=== PATIENT | female | born 2000 | race Caucasian/White ===

== ENCOUNTER 2020-09-27 11:21 | Emergency (ER) | payer SELFPAY ==
[2020-09-27 11:30] VITALS: BP 144/91; PULSE 89; RESP 20; TEMP 37; O2SAT 99
--- NOTE | 2020-09-27 11:42 | ED.URI ---
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 She reports sore throat, body aches, cough, congestion. She reports negative Covid test today. She reports continuing to have multiple symptoms. She reports a history of strep throat. She reports she is Covid tested frequently because of her occupation. MD elicited complaint: cough and sore throat Related Data Home Medications Medication Instructions Recorded Confirmed Control Pill 09/27/20 Allergies Allergy/AdvReac Type Severity Reaction Status Date / Time No Known Allergies Allergy Verified 09/27/20 11:46 Review of Systems Review of Systems: Narrative: CONSTITUTIONAL: Denies fever, chills, or sweats. EYES: Denies visual changes, redness, or discharge. ENT: Denies rhinorrhea, congestion, reports sore throat and mild otalgia. CARDIOVASCULAR: Denies pleuritic chest pain from coughing, denies palpitations, or edema. RESPIRATORY: Reports cough, denies dyspnea. GASTROINTESTINAL: Denies abdominal pain, nausea, vomiting, or diarrhea. GENITOURINARY: Denies dysuria or hematuria. SKIN: Denies rash or itching. MUSCULOSKELETAL: Denies back pain, joint pain, or myalgia. NEUROLOGIC: Reports headache, denies numbness, dizziness, or weakness. PSYCHIATRIC: Denies anxiety or depression. [facility] Past Medical History Medical History (Updated 09/27/20 @ 12:00 by GROVER Deng) No significant past medical history Surgical History Surgical History (Updated 09/27/20 @ 11:47 by GROVER Deng) No significant past surgical history Social History Social History (Updated 09/27/20 @ 11:57 by GROVER Deng) Smoking status: Never smoker Alcohol intake: never Substance use: never Living arrangements: with family Occupation/Education: occupation Exam Narrative: Exam Narrative: GENERAL: Well-appearing, well-nourished, and in no acute distress. HEAD: Normocephalic, atraumatic. EYES: No redness or drainage. Conjunctiva are normal. ENT: Mucous membranes pink and moist. TMs normal bilaterally. Throat normal erythema, edema and exudate. Uvula midline. NECK: AROM. Supple. No lymphadenopathy. CHEST: No respiratory distress. HEART: Regular rate and rhythm. EXTREMITIES: Normal range of motion. No edema. SKIN: Warm, dry, no rash. NEURO: No focal deficits. Alert and oriented x3. Gait steady. PSYCH: Normal affect. No signs of depression or anxiety. MDM - URI/Sore Throat MDM Narrative Medical decision making narrative: Patient has positive strep. Patient be treated with penicillin at this time. 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 Patient is stable for discharge home with outpatient follow-up as needed. Differential Diagnosis Differential diagnosis: Likely upper respiratory infection, viral infection, influenza and pharyngitis Lab Data Attestation: I reviewed the patient's lab results. Critical Care Time Critical Care Time Critical Care Time: No Discharge Plan Discharge Clinical Impression: Strep throat Patient Disposition: Home, Self-Care Condition: Stable Instructions: Antibiotic Form Additional Instructions: Take antibiotics as directed. Follow-up with your PCP as needed. Prescriptions: New penicillin V potassium 500 mg tablet 500 mg PO Q12H 10 Days Qty: 20 RF: 0 No Action Control Pill RF: 0 Follow-up/Referrals: PHYSICIAN,SEWING MACHINES SALESPERSON [Primary Care Provider] - Time of Disposition: 12:01
[2020-09-27 11:52] VITALS: BP 144/91; PULSE 89; RESP 20; TEMP 37; O2SAT 99
== END 2020-09-27 12:05 | disposition home or self-care (01) ==
PROVIDERS: Emergency Provider Nurse Practitioner
DX: J02.0 Streptococcal pharyngitis (principal)
CPT/HCPCS: 87804; 87880; 99213; G0463

== ENCOUNTER 2021-03-25 18:39 | Emergency (ER) | payer SELFPAY ==
[2021-03-25 18:50] VITALS: BP 138/81; PULSE 94; RESP 16; TEMP 36.6; O2SAT 100
--- NOTE | 2021-03-25 19:34 | ED.HA ---
HPI - Headache General Chief Complaint: Headache Stated Complaint: nausea headache Time Seen by Provider: 03/25/21 19:34 Source: patient and RN notes reviewed Mode of arrival: ambulatory Limitations: no limitations History of Present Illness HPI Narrative: 20-year-old female who is 6 weeks presents with concern for vomiting and headache. Reports vomiting once every hour started yesterday morning. Reports temporal intermittent headache. She denies any intervention for headache. 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 She denies any ankle swelling. Reports she is urinating at least once every 6 hours, has moist mouth and eyes. She denies thunderclap headache. Reports she has appointment at her [facility] tomorrow. MD elicited complaint: headache Related Data Home Medications Medication Instructions Recorded Confirmed PNV cmb#95-ferrous fumarate-FA 1 tablet PO DAILY 03/25/21 03/25/21 [] Allergies Allergy/AdvReac Type Severity Reaction Status Date / Time No Known Allergies Allergy Verified 09/27/20 11:46 Review of Systems Review of Systems: Narrative: CONSTITUTIONAL: Denies malaise, chills, sweats, or fever. EYES: Denies visual changes, redness, or discharge. ENT: Denies rhinorrhea, congestion, sinus pain, otalgia or sore throat. CARDIOVASCULAR: Denies chest pain, palpitations, or edema. RESPIRATORY: Denies cough or dyspnea. GASTROINTESTINAL: Denies abdominal pain, diarrhea. Reports nausea and vomiting GENITOURINARY: Denies dysuria or hematuria. Denies vaginal bleeding MUSCULOSKELETAL: Denies myalgia. NEUROLOGIC: Reports headache. All systems reviewed & are unremarkable except as noted in HPI and below PMFSH Past Medical History Medical History (Updated 03/25/21 @ 19:44 by Gilma Alvarez NP) No significant past medical history Surgical History Surgical History (Updated 09/27/20 @ 11:47 by GROVER Deng) No significant past surgical history Social History Social History (Updated 09/27/20 @ 11:57 by GROVER Deng) Smoking status: Never smoker Alcohol intake: never Substance use: never Gender identity (if verbalized by the patient): Female Comments At time of signature, agree with nursing past medical, surgical, social and family history. There is no relevant family history pertinent to the presenting complaint Exam Narrative: Exam Narrative: GENERAL: Well-appearing, well-nourished, and in no acute distress. HEAD: Normocephalic, atraumatic. EYES: PERRLA, conjunctivae clear ENT: Nares clear. Mucous membranes moist. NECK: Supple. CHEST: No respiratory distress. Speaks in full sentences. HEART: Regular rate and rhythm. ABDOMEN: Soft, nontender, nondistended, normal active bowel sounds, no palpable masses. EXTREMITIES: No edema. NEURO: Alert and oriented x3. No focal deficits. PSYCH: Normal mood and affect Course Course Emergency Course: Discussed with patient limited diagnostic capability at the [facility], discussed transfer to emergency department, patient denies transfer at this time. Advised patient on the importance of following up with her [facility] for reevaluation of her symptoms. Patient is aware of diagnosis, understands and agrees to treatment plan. Anticipatory guidance given. Patient agrees to follow-up as directed and is aware of reasons to seek care at the emergency department. Portions of this record may have been created with voice recognition software Vital Signs Vital signs: Vital Signs Temperature 97.9 F 03/25/21 18:50 Pulse Rate 94 03/25/21 18:50 Respiratory Rate 16 03/25/21 18:50 Blood Pressure 138/81 03/25/21 18:50 Pulse Oximetry 100 03/25/21 18:50 Temperature 97.9 F 03/25/21 18:50 Pulse Rate 94 03/25/21 18:50 Respiratory Rate 16 03/25/21 18:50 Blood Pressure 138/81 03/25/21 18:50 Pulse Oximetry 100 03/25/21 18:50 Reviewed. MDM - Head
== END 2021-03-25 19:51 | disposition home or self-care (01) ==
PROVIDERS: Emergency Provider Nurse Practitioner
DX: O21.9 Vomiting of pregnancy, unspecified (principal); Z3A.01 Less than 8 weeks gestation of pregnancy
CPT/HCPCS: 99213; G0463

== ENCOUNTER 2021-04-28 12:37 | Emergency (ER) | payer OTHER, SELFPAY ==
--- NOTE | ~2021-04-28 | XR_ITS ---
EXAMINATION: XR foot RT min 3V EXAM DATE: 04/28/2021 12:59 INDICATION: Fell down stairs. Initial encounter following injury, with pain of the right foot. TECHNIQUE: Right foot dorsoplantar, lateral and oblique projections obtained and reviewed. There is no prior study for comparison. FINDINGS: Right metatarsal bones unremarkable. There are no acute fractures or dislocations identifi ed. There is no subcutaneous gas. The soft tissue is unremarkable. There are no radiopaque foreig n bodies. IMPRESSION: No acute osseous findings. Reviewed, dictated and finalized at location A. IMPRESSION: No acute osseous findings.
--- NOTE | 2021-04-28 12:40 | ED.LOWEXIN ---
HPI - Extremity Injury (Lower) General Chief Complaint: Extremity Injury, Lower Stated Complaint: /Injury to right Foot from fall Time Seen by Provider: 04/28/21 12:40 Source: patient and RN notes reviewed History of Present Illness HPI Narrative: Patient is a 20-year-old female who presents the urgent care with complaints of right foot pain due to fall/injury this morning. Patient states that she is elevated and used ice but denies any use of ilvg-nac-tjgvgzg medication. Patient states she is 11 weeks . Denies of hitting her abdomen, her head, or any loss of consciousness. Patient states that they were wood laminate stairs and she was wearing socks at the time of the fall. States that she fell directly onto the right foot and her butt. No other acute complaints. No acute distress noted. Patient aware of the plan of care. Some parts of this dictation were generated by voice recognition software and may contain typographical and/or grammatical inaccuracies. Related Data Home Medications Medication Instructions Recorded [facility]irmed [facility] 1 tablet PO DAILY 03/25/21 03/25/21 [] Allergies Allergy/AdvReac Type Severity Reaction Status Date / Time No Known Allergies Allergy Verified 04/28/21 12:53 Review of Systems Review of Systems: Narrative: CONSTITUTIONAL: Denies fever, chills, or sweats. EYES: Denies visual changes, redness, or discharge. ENT: Denies rhinorrhea, congestion, sore throat, or otalgia. CARDIOVASCULAR: Denies chest pain, palpitations, or edema. RESPIRATORY: Denies cough or dyspnea. GASTROINTESTINAL: Denies abdominal pain, nausea, vomiting, or diarrhea. GENITOURINARY: Denies dysuria or hematuria. SKIN: Denies rash or itching. MUSCULOSKELETAL: Reports of right foot pain NEUROLOGIC: Denies headache, numbness, or weakness. All other systems reviewed are negative, except as documented in HPI. [facility] Past Medical History Medical History (Updated 04/28/21 @ 13:13 by GROVER Solis) No significant past medical history Surgical History Surgical History (Updated 09/27/20 @ 11:47 by GROVER Deng) No significant past surgical history Social History Social History (Updated 09/27/20 @ 11:57 by GROVER Deng) Smoking status: Never smoker Alcohol intake: never Substance use: never Gender identity (if verbalized by the patient): Female Comments At the time of my signature, I reviewed and agree with the nursing past medical, surgical, social, and family history. There is no relevant family history pertinent to the patient complaint. Exam Narrative: Exam Narrative: GENERAL: This is a well-nourished, well-developed patient, in no apparent distress. HEAD: normocephalic, atraumatic. EYES: PERRL. Sclera clear/white. Vision is grossly intact. EARS: External ears normal NOSE: External nose normal with no obvious nasal discharge, nares without redness, no rhinorrhea. THROAT: Mucous membranes moist NECK: Neck supple CARDIOVASCULAR: Regular rate and rhythm without murmurs, gallops, or rubs. RESPIRATORY: Clear to auscultation. Breath sounds equal bilaterally. No wheezes, rales, or rhonchi. SKIN: warm, intact with no suspicious lesions or rash, good texture and turgor. NEURO: awake, alert, and oriented to person, place and time. There were no obvious focal neurologic abnormalities. EXTREMITIES: Very mild area of ecchymosis and erythema noted to the dorsal lateral aspect of the right foot without obvious deformity. Range of motion within normal limits with exacerbated pains. Positive strong right pedal pulse with capillary refill less than 2 seconds Course Vital Signs Vital signs: Vital Signs Temperature 98.5 F 04/28/21 12:47 Pulse Rate 101 H 04/28/21 12:47 Respiratory Rate 14 04/28/21 12:47 Blood Pressure 136/70 04/28/21 12:47 Pulse Oximetry 99 04/28/21 12:47 Temperature 98.5 F 04/28/21 12:54 Puls
[2021-04-28 12:47] VITALS: BP 136/70; PULSE 101; RESP 14; TEMP 36.9; O2SAT 99
[2021-04-28 12:54] VITALS: BP 136/70; PULSE 101; RESP 14; TEMP 36.9; O2SAT 99
--- NOTE | 2021-04-28 13:09 | PC.NURSE ---
PT STATED SHE WAS 11 WEEKS AND WAS TOLD OF RISKS OF RADIATION AND AGREED FOR IMAGING. PT WAS DOUBLE SHIELDED.
== END 2021-04-28 13:17 | disposition home or self-care (01) ==
PROVIDERS: Emergency Provider Nurse Practitioner Family
DX: O9A.211 Injury, poisoning and certain other consequences of external causes complicating pregnancy, first trimester (principal); S99.921A Unspecified injury of right foot, initial encounter; W10.9XXA Fall (on) (from) unspecified stairs and steps, initial encounter; Z3A.11 11 weeks gestation of pregnancy
CPT/HCPCS: 73630; 99213; G0463

== ENCOUNTER 2021-12-28 11:22 | Emergency (ER) | payer OTHER, SELFPAY ==
[2021-12-28 11:28] VITALS: BP 147/90; PULSE 85; RESP 20; TEMP 37.1; O2SAT 98
--- NOTE | 2021-12-28 14:43 | ED.GENADULT ---
HPI - General Adult General Chief complaint: Shortness of Breath/Dyspnea Stated complaint: Shortness of Breath Time Seen by Provider: 12/28/21 12:01 Source: patient and RN notes reviewed Mode of arrival: ambulatory Limitations: no limitations History of Present Illness HPI narrative: Patient presents today complaining of intermittent shortness of breath, cough, rhinorrhea since 1800 last night. Denies fever, congestion, sore throat. States she was exposed to COVID-19 3 days ago at work. Patient works at a [employer]. She has tried no medication for symptoms prior to arrival. Denies any history of asthma or COPD. She is a non-smoker. She did take a home COVID-19 test today it was negative. MD complaint: Shortness of breath, cough Related Data Home Medications Medication Instructions Recorded Confirmed desog-e.estradiol/e.estradiol 1 tablet DIRECTED 12/28/21 12/28/21 [Pantera (28)] Allergies Allergy/AdvReac Type Severity Reaction Status Date / Time No Known Allergies Allergy Verified 04/28/21 12:53 Review of Systems Review of Systems: CONSTITUTIONAL: Denies body aches, fever, chills, or sweats. EYES: Denies visual changes, redness, or discharge. ENT: Denies congestion, sore throat, or otalgia.+ Rhinorrhea CARDIOVASCULAR: Denies chest pain, palpitations, or edema. RESPIRATORY: + Cough, intermittent shortness of breath GASTROINTESTINAL: Denies abdominal pain, nausea, vomiting, or diarrhea. GENITOURINARY: Denies dysuria or hematuria. SKIN: Denies rash, itching, or wounds. MUSCULOSKELETAL: Denies back pain, joint pain, or myalgia. NEUROLOGIC: Denies headache, numbness, tingling, or weakness. PSYCH: Denies depression or anxiety. [facility] Past Medical History Medical History No significant past medical history Surgical History Surgical History No significant past surgical history Social History Social History Smoking status: Never smoker Alcohol intake: never Substance use: never Gender identity (if verbalized by the patient): Female Comments At time of signature, I have reviewed and agree with nursing past medical, surgical, social and family history unless otherwise noted. Please see nursing chart for further information. There is no relevant family history pertinent to the presenting complaint Exam Narrative: GENERAL: Well-appearing, well-nourished, and in no acute distress. HEAD: Normocephalic, atraumatic. EYES: EOMI. No redness or drainage. Conjunctivae normal. ENT: Mucous membranes pink and moist. Nares clear. No rhinorrhea. TMs normal bilaterally. Throat normal. Uvula midline. NECK: Normal AROM. Supple. No lymphadenopathy. CHEST: No respiratory distress. Clear to auscultation. HEART: Regular rate and rhythm. No murmur appreciated. Normal peripheral pulses. EXTREMITIES: Normal range of motion. No edema. SKIN: Warm, dry, no rash. Capillary refill normal. Normal skin turgor. NEURO: No focal deficits. Alert and oriented x3. Gait steady. PSYCH: Normal affect. No signs of depression or anxiety. Course Course Level of Care: Express Care Visit Vital Signs Vital signs: Vital Signs Temperature 98.8 F 12/28/21 11:28 Pulse Rate 85 12/28/21 11:28 Respiratory Rate 20 12/28/21 11:28 Blood Pressure 147/90 H 12/28/21 11:28 Pulse Oximetry 98 12/28/21 11:28 Temperature 98.8 F 12/28/21 11:28 Pulse Rate 85 12/28/21 11:28 Respiratory Rate 20 12/28/21 11:28 Blood Pressure 147/90 H 12/28/21 11:28 Pulse Oximetry 98 12/28/21 11:28 Reviewed. Pt has been instructed to follow up with her PCP regarding her elevated blood pressure today. Medical Decision Making Differential Diagnosis Differential Diagnosis: COVID-19, URI, bronchitis Vital Signs Vital Signs: Vital Signs [place]
== END 2021-12-28 12:19 | disposition home or self-care (01) ==
PROVIDERS: Emergency Provider Nurse Practitioner
DX: B34.9 Viral infection, unspecified (principal)
CPT/HCPCS: 99213; G0463

== ENCOUNTER 2022-01-21 09:12 | Emergency (ER) | payer OTHER, SELFPAY ==
--- NOTE | ~2022-01-21 | XR_ITS ---
EXAMINATION: XR hand LT min 3V EXAM DATE: 01/21/2022 09:37 INDICATION: Fell forward, 1st metacarpal pain. TECHNIQUE: Left hand frontal, lateral and oblique projections obtained and reviewed. FINDINGS: Left metacarpal bones are unremarkable. There are no acute fractures or dislocations ident ified. There is no subcutaneous gas. The soft tissue is unremarkable. There are no radiopaque for eign bodies. IMPRESSION: 1. Unremarkable XR hand LT min 3V exam. Reviewed, dictated and finalized at location D. [employer]
[2022-01-21 09:25] VITALS: BP 147/101; PULSE 95; RESP 20; TEMP 36.6; O2SAT 100
--- NOTE | 2022-01-21 09:42 | ED.UPPEXIN ---
HPI - Extremity Injury (Upper) General Chief Complaint: Extremity Injury, Upper Stated Complaint: left hand injury Time Seen by Provider: 01/21/22 09:43 Source: patient Mode of arrival: ambulatory Limitations: no limitations History of Present Illness HPI narrative: 21-year-old female presented for complaint of left thumb pain, swelling, and bruising after fall 5 days ago. Fell down 6 stairs, states she hit her head but denies loss of consciousness. She states the pain is getting worse. Was seen at outside hospital, states the x-ray was cloudy, they gave her a velcro splint and hydrocodone. Endorses limited range of motion to thumb due to pain, and decrease in sensation to the thumb. Denies change in color. Has not been taking anything else for pain. Has not applied ice. Scheduled with Ortho 01/28/2022 Related Data Home Medications Medication Instructions Recorded Confirmed desog-e.estradiol/e.estradiol 1 tablet DIRECTED 12/28/21 01/21/22 [Pantera (28)] hydrocodone-acetaminophen 1 tablet PO Q6H PRN 01/21/22 01/21/22 Allergies Allergy/AdvReac Type Severity Reaction Status Date / Time No Known Allergies Allergy Verified 01/21/22 09:36 Review of Systems Review of Systems: CONSTITUTIONAL: Denies body aches, fever, chills EYES: Denies visual changes ENT: Denies rhinorrhea, congestion CARDIOVASCULAR: Denies chest pain, palpitations, or edema. RESPIRATORY: Denies cough or dyspnea. GASTROINTESTINAL: Denies abdominal pain, nausea, vomiting, or diarrhea. SKIN: Denies rash, itching, or wounds. MUSCULOSKELETAL: Reports left thumb pain NEUROLOGIC: Denies headache, numbness, tingling, or weakness. PSYCH: Denies depression or anxiety. All systems reviewed & are unremarkable except as noted in HPI and below PMFSH Past Medical History Medical History No significant past medical history Surgical History Surgical History No significant past surgical history Social History Social History Smoking status: Never smoker Alcohol intake: never Substance use: never Gender identity (if verbalized by the patient): Female Comments At time of signature, I have reviewed and agree with nursing past medical, surgical, social and family history unless otherwise noted. Please see nursing chart for further information. There is no relevant family history pertinent to the presenting complaint Exam Narrative: GENERAL: Well-appearing, well-nourished, and in no acute distress. HEAD: Normocephalic, atraumatic. EYES: PERRLA, conjunctivae clear NECK: Supple. CHEST: Speaks in full sentences. No respiratory distress. HEART: Regular rate and rhythm. Normal and equal peripheral pulses. EXTREMITIES: Left hand has normal strength and sensation, limited normal range of motion with flexion/extension due to pain with movement. Moderate edema to palmar aspect of the first metacarpal and ecchymosis to dorsal aspect of the first metacarpal, tenderness to entire left thumb, including site for pulse assessment, no open wounds, skin tenting, or obvious deformity; alignment normal, pulse palpable and equal bilaterally, skin warm, dry, pink. Capillary refill less than 3 seconds. SKIN: Warm, dry, no rash. NEURO: Alert and oriented x3. PSYCH: Normal mood and affect Course Course Emergency Course: X-ray reviewed with patient. patient is aware of diagnosis, understands and agrees to treatment plan. Anticipatory guidance given. Patient agrees to follow-up as directed and is aware of reasons to seek care at the emergency department. Portions of this record may have been created with voice recognition software Level of Care: Express Care Visit Vital Signs Vital signs: Vital Signs Temperature 98 F 01/21/22 09:25 Pulse Rate 95 01/21/22 09:25 Respiratory Rat
== END 2022-01-21 10:00 | disposition home or self-care (01) ==
PROVIDERS: Emergency Provider Nurse Practitioner Family
DX: S63.92XA Sprain of unspecified part of left wrist and hand, initial encounter (principal); S66.912A Strain of unspecified muscle, fascia and tendon at wrist and hand level, left hand, initial encounter; W10.9XXA Fall (on) (from) unspecified stairs and steps, initial encounter; Z86.16 Personal history of COVID-19
CPT/HCPCS: 73130; 99213; G0463

== ENCOUNTER 2023-09-13 17:40 | Emergency (ER) | payer OTHER, SELFPAY ==
--- NOTE | ~2023-09-13 | XR_ITS ---
EXAM: XR ankle LT min 3V DATE: 09/13/2023 17:56 HISTORY: INVERSION INJURY, LAT MALLEOLUS PAIN . COMPARISON: None available. FINDINGS: Normal mineralization. No fracture or dislocation. No lytic or blastic lesion. Joint space s are maintained. Plantar and Achilles enthesopathy No erosion or periosteal change. Soft tissues wit hin normal limits. IMPRESSION: No acute osseous finding in the left ankle. Reviewed, dictated and finalized at location K.
[2023-09-13 17:46] VITALS: BP 143/99; PULSE 81; RESP 16; TEMP 36.1; O2SAT 99
--- NOTE | 2023-09-13 17:54 | ED.LOWEXIN ---
HPI - Extremity Injury (Lower) General Chief Complaint: Extremity Injury, Lower Stated Complaint: left ankle injury Time Seen by Provider: 09/13/23 18:07 Source: patient and RN notes reviewed Mode of arrival: ambulatory Limitations: no limitations History of Present Illness HPI Narrative: 22-year old female presents with concern for ankle injury. She reports she slipped today and turned her ankle and landed on it. She reports lateral pain that shoots up her leg. She reports pain worsens when she wiggles her toes. She denies decreased range of motion, strength. MD complaint: ankle injury Related Data Home Medications Medication Instructions Recorded Confirmed desogestrel-e.estradiol 0.15 1 tablet DIRECTED 12/28/21 01/21/22 mg-0.02 mg(21)/e.estrad 0.01 mg(5) tablet ([place] (28)) ergocalciferol (vitamin D2) 1,250 1 mcg PO WEEKLY 09/13/23 09/13/23 mcg (50,000 unit) capsule escitalopram oxalate 20 mg tablet 20 mg PO DAILY 09/13/23 09/13/23 Allergies Allergy/AdvReac Type Severity Reaction Status Date / Time oxycodone Allergy Swelling Verified 09/13/23 17:50 Review of Systems Review of Systems: CONSTITUTIONAL: Denies malaise, chills, sweats, or fever. SKIN: Denies rash or itching, open skin, laceration, abrasion, redness, warmth MUSCULOSKELETAL: Reports left ankle pain and swelling NEUROLOGIC: Denies numbness, weakness All systems reviewed & are unremarkable except as noted in HPI and below PMFSH Past Medical History Medical History No significant past medical history Surgical History Surgical History No significant past surgical history Social History Social History Smoking status: Never smoker Alcohol intake: never Substance use: never Living arrangements: with family Occupation/Education: occupation Gender identity (if verbalized by the patient): Female Comments At time of signature, agree with nursing past medical, surgical, social and family history. There is no relevant family history pertinent to the presenting complaint Exam Narrative: GENERAL: Well-appearing, well-nourished, and in no acute distress. HEAD: Normocephalic, atraumatic. EYES: PERRLA, conjunctivae clear NECK: Supple. CHEST: Speaks in full sentences. No respiratory distress. HEART: Regular rate and rhythm. Normal and equal peripheral pulses. EXTREMITIES: Left ankle has has grossly normal strength and sensation, grossly normal range of motion, patient reports pain with ankle rotation. Mild lateral edema, no ecchymosis. Normal sensation with sensitivity to light touch and pain. Lateral tenderness. No open wounds, no skin tenting, no devitalized tissue or atrophy, no trophic changes, no obvious deformity, alignment normal, nearby joints and structures intact. Distal pulses palpable and equal bilaterally, skin warm, dry, pink. Capillary refill less than 3 seconds. SKIN: Warm, dry, no rash. NEURO: Alert and oriented x3. PSYCH: Normal mood and affect Course Course Emergency Course: Patient is aware of diagnosis, understands and agrees to treatment plan. Anticipatory guidance given. Patient agrees to follow-up as directed and is aware of reasons to seek care at the emergency department. Portions of this record may have been created with voice recognition software Level of Care: Express Care Visit Vital Signs Vital signs: Reviewed. MDM - Extremity Injury (Lower) MDM Narrative Medical decision making narrative: Patients injury and pain is consistent with musculoskeletal etiology. No signs of neurological or vascular compromise on exam. Compartments and tissues are soft without signs of compartment syndrome. Pain is felt appropriate for further evaluation on an outpatient basis. Imaging Data My impression: Images reviewed, interp
== END 2023-09-13 18:22 | disposition home or self-care (01) ==
PROVIDERS: Emergency Provider Nurse Practitioner
DX: S93.402A Sprain of unspecified ligament of left ankle, initial encounter (principal); S96.912A Strain of unspecified muscle and tendon at ankle and foot level, left foot, initial encounter; X50.9XXA Other and unspecified overexertion or strenuous movements or postures, initial encounter; F32.A Depression, unspecified
CPT/HCPCS: 73610; 99213; G0463

== ENCOUNTER 2024-06-19 18:50 | Emergency (ER) | payer OTHER, SELFPAY ==
--- NOTE | ~2024-06-19 | XR_ITS ---
EXAMINATION: XR lumbar spine 2-3V DATE: 06/19/2024 19:38 INDICATION: Midline low back pain after pulling injury TECHNIQUE: Anteroposterior and lateral views of the lumbar spine, and cone-down lateral view of the l umbosacral junction were obtained. COMPARISON: None. FINDINGS: 4 degree lumbar levocurvature. Sagittal alignment is normal. Vertebral body heights are normal. No ev ident fracture. Disc heights are normal. Bilateral hip and sacroiliac joint spaces appear relatively preserved. T-shaped IUD in expected position projecting over the central pelvis. Multiple small splen ic calcifications consistent with old granulomatous disease. IMPRESSION: 1. Minimal lumbar levocurvature. Otherwise unremarkable lumbar spine. 2. IUD. Reviewed, dictated and finalized at location A.
[2024-06-19 18:59] VITALS: BP 155/96; PULSE 85; RESP 18; TEMP 36.4; O2SAT 100
--- NOTE | 2024-06-19 19:19 | ED.BACK ---
HPI - Back Pain/Injury General Chief Complaint: Back Pain/Injury Stated Complaint: WC back/hip injury Time Seen by Provider: 06/19/24 19:20 Source: patient Mode of arrival: ambulatory Limitations: no limitations History of Present Illness HPI Narrative: 23-year-old female presented for complaint of mid lower back pain after injury while at work today. 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 She states she felt and heard a pop in her mid lower back. Since then she has rated pain 8/10, Pain is worse with any movement and radiates up under the shoulder blades. Pt denies falling. Denies pain radiating into the hips or legs, numbness, tingling, weakness of the lower extremities, or change in gait, saddle paresthesia or loss of bowel or bladder. Has not taken anything for pain. Related Data Home Medications Medication Instructions Recorded Confirmed bupropion HCl 300 mg 24 hr tablet, 300 mg PO DAILY 06/19/24 06/19/24 extended release Allergies Allergy/AdvReac Type Severity Reaction Status Date / Time oxycodone Allergy Swelling Verified 06/19/24 19:11 Review of Systems Review of Systems: CONSTITUTIONAL: Denies body aches, fever, chills EYES: Denies visual changes CARDIOVASCULAR: Denies chest pain, palpitations, or edema. RESPIRATORY: Denies cough or dyspnea. GASTROINTESTINAL: Denies abdominal pain, nausea, vomiting, or diarrhea. SKIN: Denies rash, itching, or wounds. MUSCULOSKELETAL: reports back pain NEUROLOGIC: Denies headache, numbness, tingling, or weakness. All systems reviewed & are unremarkable except as noted in HPI and below PMFSH Past Medical History Medical History No significant past medical history Surgical History Surgical History No significant past surgical history Social History Social History Smoking status: Never smoker Alcohol intake: never Substance use: never Living arrangements: with family Occupation/Education: occupation Gender identity (if verbalized by the patient): Female Comments At time of signature, I have reviewed and agree with nursing past medical, surgical, social and family history unless otherwise noted. Please see nursing chart for further information. There is no relevant family history pertinent to the presenting complaint Exam Narrative: GENERAL: appear in pain, and in no acute distress. HEAD: Normocephalic, atraumatic. NECK: Supple. full ROM CHEST: Speaks in full sentences. No respiratory distress. HEART: Regular rate and rhythm. Normal and equal peripheral pulses. MUSC: Mid lumbar Vertebral point tenderness and para spinal tenderness with light palpation over skin. BLEs with normal strength and sensation, normal range of motion; endorses back pain with movements. No abrasions or ecchymosis, No open wounds, or obvious deformity; alignment normal, pulse palpable and equal bilaterally, skin warm, dry, pink. Capillary refill less than 3 seconds. Gait steady. SKIN: Warm, dry NEURO: Alert and oriented x3. Back/Spine/Pelvis: Back/spine/pelvis image: 1. area of reported pain Course Course Emergency Course: Patient is aware of diagnosis, understands and agrees to treatment plan. Anticipatory guidance given. Patient agrees to follow-up as directed and is aware of reasons to seek care at the emergency department. Portions of this record may have been created with voice recognition software Level of Care: Express Care Visit Vital Signs Vital signs: Vital Signs Temperature 97.5 F L 06/19/24 18:59 Pulse Rate 85 06/19/24 18:59 Respiratory Rate 18 06/19/24 18:59 Blood Pressure 155/96 H 06/19/24 18:59 Pulse Oximetry 100 06/19/24 18:59 Oxygen Delivery Room Air 06/19/24 18:59
== END 2024-06-19 20:21 | disposition home or self-care (01) ==
PROVIDERS: Emergency Provider Nurse Practitioner Family; PCP Nurse Practitioner
DX: M54.50 Low back pain, unspecified (principal)
CPT/HCPCS: 72100; 99213; G0463